=== PATIENT | male | born 1965 | race Caucasian/White ===

== ENCOUNTER 2023-04-25 22:41 | Emergency (ER) | payer OTHER ==
[~2023-04-25] VITALS: Ht 172.7 cm; Wt 77.1 kg
[2023-04-25 22:58] VITALS: BP 138/72; PULSE 71; RESP 16; TEMP 97.1; O2SAT 98
[2023-04-25 23:06] VITALS: BP 138/72; PULSE 71; RESP 16; TEMP 97.1; O2SAT 98
[2023-04-25] MEDS ORDERED: CEPH-588 PO (23:28)
== END 2023-04-25 23:30 | disposition home or self-care (01) ==
LOC: MED 22:41
DX: S60.511A Abrasion of right hand, initial encounter (principal); W57.XXXA Bitten or stung by nonvenomous insect and other nonvenomous arthropods, initial encounter; Y93.89 Activity, other specified; Y92.89 Other specified places as the place of occurrence of the external cause; Y99.8 Other external cause status
CPT/HCPCS: 99281; 99283